=== PATIENT | female | born 1975 | race American Indian/Alaskan Native ===

== ENCOUNTER 2020-07-10 10:23 | Emergency (ER) | payer OTHER ==
[2020-07-10] MEDS ORDERED: SODIUM CHLORIDE 0.9% 1000 ML 1,000 ML IV ONE ×2 (11:25→16:18)
[2020-07-10] MEDS ORDERED: METOCLOPRAMIDE 10 MG/2 ML INJ IV ONE (11:25)
[2020-07-10] MEDS ORDERED: diphenhydrAMINE 50 MG/ML VIAL IV ONE (11:25)
[2020-07-10] MEDS ORDERED: HYOSCYAMINE SUBL 0.125 MG TAB SL ONE (11:25)
--- NOTE | 2020-07-10 11:25 | Event Note ---
ED Screening Note ED Screening Note: n/v/d that began a week ago no hematochezia no hematemesis upper abd pain no fever no dysuria recent travel to [place] no cough no SOB PMHx MO, HTN, chronic pain,migraines, CHF, erosive PUD sees a pain specialist in [place] allergy:none LNMP: end june abdominal surgical hx: tubal ligation This initial assessment/diagnostic orders/clinical plan/treatment(s) is/are subject to change based on patients health status, clinical progression and re- assessment by fellow clinical providers in the ED. Further treatment and workup at subsequent clinical providers discretion. Patient/guardian urged not to elope from the ED as their condition may be serious if not clinically assessed and managed. Initial orders include: labs, ua
[2020-07-10 11:28] LABS: Alanine Aminotransferase 18 units/L (7-56); Albumin 4.4 g/dL (3.9-5); BUN/Creatinine Ratio 11; Blood Urea Nitrogen 9 mg/dL (7-17); Calcium 9.5 mg/dL (8.4-10.2); Hemolysis Index 6
[2020-07-10 11:36] LABS: Basophils % (Auto) 0.8 % (0.0-1.8); Eosinophils # (Auto) 0.1 K/mm3 (0.0-0.4); Hematocrit 36.4 % (30.3-42.9); Hemoglobin 11.5 gm/dl (10.1-14.3); Lymphocytes # (Auto) 1.9 K/mm3 (1.2-5.4); Lymphocytes % (Auto) 32.3 % (13.4-35.0); Mean Corpuscular HGB Conc 32 % (30-34); Mean Corpuscular Volume 79 fl (79-97); Monocytes # (Auto) 0.5 K/mm3 (0.0-0.8); Monocytes % (Auto) 9.1 % (0.0-7.3); Platelet Count 203 K/mm3 (140-440); Red Blood Count 4.58 M/mm3 (3.65-5.03)
[2020-07-10 11:42] LABS: Red Cell Distribution Width 20.8 % (13.2-15.2)
--- NOTE | 2020-07-10 11:48 | Emergency Department Report ---
ED N/V/D HPI - General Chief complaint: Nausea/Vomiting/Diarrhea Stated complaint: N/V 1 WK Time Seen by Provider: 07/10/20 11:22 Source: patient, EMS Mode of arrival: Wheelchair Limitations: No Limitations - History of Present Illness Initial comments: 44-year-old -Al[place]ian female presents to the emergency room for nausea vomiting diarrhea for a week. Patient states that she recently traveled here from [place]. She is not sure if she could have food poisoning. Patient does have a history of acute MA hypertension chronic back pain. Patient has not taken her blood pressure medication today. She denies any chest pain just abdominal pain. He denies any fever no chills. MD complaint: nausea, vomiting Onset/Timin -: week(s) Description of Vomiting: food contents, watery Description of Diarrhea: water Location: diffuse Severity: moderate Pain Scale: 6 Quality: cramping, sharp Consistency: intermittent Improves with: none Worsens with: none Context: possible food poisoning Associated Symptoms: fever/chills, nausea/vomiting - Related Data Previous Rx's Medication Instructions Recorded Last Taken Type Loperamide [Imodium] 2 mg PO Q2HR PRN #12 capsule 07/10/20 Unknown Rx Ondansetron [Zofran Odt] 4 mg PO Q8HR PRN #12 tab.rapdis 07/10/20 Unknown Rx traMADoL [Ultram 50 MG tab] 50 mg PO Q6HR PRN #12 tablet 07/10/20 Unknown Rx Allergies Allergy/AdvReac Type Severity Reaction Status Date / Time No Known Allergies Allergy Unverified 07/10/20 10:24 ED Review of Systems ROS: Stated complaint: N/V 1 WK Other details as noted in HPI Comment: All other systems reviewed and negative ED Past Medical Hx - Past Medical History Previous Medical History?: Yes Hx Hypertension: Yes Hx Heart Attack/AMI: Yes Additional medical history: Back pain - Surgical History Past Surgical History?: Yes Additional Surgical History: L5-S1 Fusion - Social History Smoking Status: Never Smoker Substance Use Type: Prescribed - Medications Home Medications: Home Medications Medication Instructions Recorded Confirmed Last Taken Type Loperamide [Imodium] 2 mg PO Q2HR PRN #12 capsule 07/10/20 Unknown Rx Ondansetron [Zofran Odt] 4 mg PO Q8HR PRN #12 tab.rapdis 07/10/20 Unknown Rx traMADoL [Ultram 50 MG tab] 50 mg PO Q6HR PRN #12 tablet 07/10/20 Unknown Rx ED Physical Exam - General Limitations: No Limitations General appearance: alert, in no apparent distress - Head Head exam: Present: atraumatic, normocephalic - Eye Eye exam: Present: normal appearance - ENT ENT exam: Present: mucous membranes dry - Neck Neck exam: Present: normal inspection, full ROM - Respiratory Respiratory exam: Present: normal lung sounds bilaterally. Absent: accessory muscle use - Cardiovascular Cardiovascular Exam: Present: regular rate - GI/Abdominal GI/Abdominal exam: Present: soft, tenderness. Absent: distended - Extremities Exam Extremities exam: Present: normal inspection - Back Exam Back exam: Present: normal inspection - Neurological Exam Neurological exam: Present: alert, oriented X3, normal gait - Psychiatric Psychiatric exam: Present: normal affect, normal mood - Skin Skin exam: Present: warm, dry, intact, normal color. Absent: rash ED Course Vital Signs 07/10/20 07/10/20 07/10/20 10:26 13:14 14:56 Temperature 97.8 F Pulse Rate 74 Respiratory 20 18 18 Rate Blood Pressure 192/114 Blood Pressure [Left] O2 Sat by Pulse 99 Oximetry 07/10/20 07/10/20 07/10/20 16:09 17:28 19:36 Temperature 98.1 F Pulse Rate 77 Respiratory 18 18 18 Rate Blood Pressure Blood Pressure 160/92 [Left] O2 Sat by Pulse 98 Oximetry ED Medical Decision Making - Lab Data Result diagrams: 07/10/20 10:43 07/10/20 10:43 - Radiology Data Radiology results: report reviewed Patient: JAMES MOON MR#: [id number] : 1975 Acct:[id number] Age/Sex: 44 / F ADM Date: 07/10/20 Loc: ED Attending Dr: Ordering Physician: LAUREN FRANK Date of Service: 07/10/20 Procedure(s): CT abdomen pelvis w con Accession Number(s): [id number] cc: LAUREN FRANK CT OF THE ABDOMEN AND PELVIS WITH INTRAVENOUS CONTRAST INDICATION / CLINICAL INFORMATION: Abdominal pain with nausea and vomiting for one week. TECHNIQUE: The patient received 100 cc Omnipaque [address] scans at this location are performed using CT dose reduction for ALARA by means of automated exposure cont rol. COMPARISON: None available. FINDINGS: ABDOMEN: The liver, spleen, gallbladder, bile ducts, pancreas, adrenal glands, kidneys and bowel demonstrate no significant abnormality. There is no evidence of bowel obstruction, wall thickening or free air. No adenopathy is seen. Mild mosaic lung attenuation in the lung bases. PELVIS: The distal ureters and urinary bladder are normal. There are multiple uterine fibroids, the largest of which measures approximately 3.5 cm in the right uterine body. I see no evidence of adnexal mass or free fluid. There is no evidence of appendicitis or diverticulitis. I do not identify a hernia. There are surgical changes at the lumbosacral junction. IMPRESSION: 1. No acute intra-abdominal disease is identified. 2. Multiple uterine fibroids. 3. Mosaic lung attenuation in the bases is most commonly related to small airway disease. Signer Name: José Antonio Joe MD Signed: 07/10/2020 2:31 PM Workstation Name: [id number] Transcribed By: RT Dictated By: José Antonio Joe MD Electronically Authenticated By: José Antonio Joe MD Signed Date/Time: 07/10/20 1431 DD/ 1426 TD/TT: - Medical Decision Making 44-year-old -Algerian female presents to the emergency room for nausea vomiting diarrhea for a week. Patient states that she recently traveled here from [place]. She is not sure if she could have food poisoning. Patient does have a history of acute MA hypertension chronic back pain. Patient has not taken her blood pressure medication today. She denies any chest pain just abdominal pain. He denies any fever no chills. CT scan is negative for any acute abnormalities it does show fibroids. Patient be discharged home with Zofran tramadol ibuprofen and Imodium. Patient is encouraged to increase her fluid intake advance her diet as tolerated. Critical care attestation.: If time is entered above; I have spent that time in minutes in the direct care of this critically ill patient, excluding procedure time. ED Disposition Clinical Impression: Acute abdominal pain, Fibroids Disposition: DC-01 TO HOME OR SELFCARE Is pt being admited?: No Does the pt Need Aspirin: No Condition: Stable Instructions: Uterine Fibroids, Abdominal Pain, Adult, [id number] Additional Instructions: CT is negative for any acute abnormalities. Does show that you have uterine fibroids. I recommend following up with the [facility]. I am discharging you with Zofran for nausea and vomiting Imodium for diarrhea take as directed on package as this is a [id number] medication. And tramadol for pain. Prescriptions: Loperamide [Imodium] 2 mg PO Q2HR PRN #12 capsule PRN Reason: Diarrhea traMADoL [Ultram 50 MG tab] 50 mg PO Q6HR PRN #12 tablet PRN Reason: Pain Ondansetron [Zofran Odt] 4 mg PO Q8HR PRN #12 tab.rapdis PRN Reason: Nausea And Vomiting Referrals: [facility] [Primary Care Provider] - 3-5 Days [facility] [Provider [facility]] - 3-5 Days [facility] [Provider Group] - 3-5 Days Forms: Work/School Release Form(ED)
[2020-07-10] MEDS ORDERED: MORPHINE 4 MG/1 ML INJ IV ONE ×2 (12:44→16:18)
[2020-07-10 13:58] LABS: Mucus,Urine 3+ /HPF
[2020-07-10 14:14] LABS: Bilirubin,Urine Small (Negative); Color,Urine Dark Yellow (Yellow)
[2020-07-10 14:15] LABS: Blood,Urine Negative (Negative); PH,Urine 6.5 (5.0-7.0); Urobilinogen,Urine < 2.0 mg/dL (<2.0)
[2020-07-10 14:23] LABS: Ictotest,Urine Negative (Negative)
--- NOTE | 2020-07-10 14:36 | Cat Scan Report ---
CT OF THE ABDOMEN AND PELVIS WITH INTRAVENOUS CONTRAST INDICATION / CLINICAL INFORMATION: Abdominal pain with nausea and vomiting for one week. TECHNIQUE: The patient received 100 cc Omnipaque [address] scans at this location are performed using CT dose reduction for ALARA by means of automated exposure control. COMPARISON: None available. FINDINGS: ABDOMEN: The liver, spleen, gallbladder, bile ducts, pancreas, adrenal glands, kidneys and bowel demo nstrate no significant abnormality. There is no evidence of bowel obstruction, wall thickening or darby e air. No adenopathy is seen. Mild mosaic lung attenuation in the lung bases. PELVIS: The distal ureters and urinary bladder are normal. There are multiple uterine fibroids, the l argest of which measures approximately 3.5 cm in the right uterine body. I see no evidence of adnexal mass or free fluid. There is no evidence of appendicitis or diverticulitis. I do not identify a siri ia. There are surgical changes at the lumbosacral junction. IMPRESSION: 1. No acute intra-abdominal disease is identified. 2. Multiple uterine fibroids. 3. Mosaic lung attenuation in the bases is most commonly related to small airway disease. Signer Name: José Antonio Joe MD Signed: 07/10/2020 2:31 PM Workstation Name: [id number]
[2020-07-10] MEDS ORDERED: ONDANSETRON 4 MG/2 ML INJ IV ONE (16:18)
[2020-07-10 16:22] LABS: Amphetamine Screen,Urine Negative; Cannabinoid Screen,Urine Negative; Cocaine Screen,Urine Negative; Methadone Screen,Urine Negative; Opiate Screen,Urine Negative
[2020-07-10 16:46] LABS: Benzodiazepines Screen,Urine Positive
[2020-07-10 22:23] VITALS: BP 160/92
== END 2020-07-10 20:00 | disposition home or self-care (01) ==
LOC: ED 10:23
DX: D25.9 Leiomyoma of uterus, unspecified (principal); Z79.899 Other long term (current) drug therapy
CPT/HCPCS: 36415; 74177; 80053; 80307; 81001; 83690; 84703; 85025; 96361; 96374; 96375; 96376; 99284; J1200; J2270; J2405; J2765; J7030; Q9967